=== PATIENT | male | born 1955 | race Caucasian/White ===

== ENCOUNTER → 2024-08-16 06:25 | Day surgery (SDC) | payer OTHER, SELFPAY ==
[2024-08-16 07:51] LABS: Glucose - Point of Care 119 mg/dl (70-99)
== END ==
LOC: GI 06:25
PROVIDERS: ATTENDING PHYSICIAN Internal Medicine Gastroenterology
DX: Z12.11 Encounter for screening for malignant neoplasm of colon (principal); K57.30 Diverticulosis of large intestine without perforation or abscess without bleeding; K62.89 Other specified diseases of anus and rectum; D12.3 Benign neoplasm of transverse colon; Z86.0100 Personal history of colon polyps, unspecified
CPT/HCPCS: 45385; 88305; 82962